=== PATIENT | female | born 1970 | race Caucasian/White ===

== ENCOUNTER 2018-09-05 12:09 | Day surgery (SDC) | payer MEDICAID ==
[~2018-09-05] VITALS: Ht 152.4 cm; Wt 64.1 kg
[~2018-09-05 12:09] MED LIST: SODIUM CHLORIDE 0.9% 1,000 ML IV ONE
[2018-09-05] MEDS ORDERED: PROPOFOL 1% 20 ML VIAL IVP ONE (12:10)
== END 2018-09-05 15:20 | disposition home or self-care (01) ==
LOC: SURGERY 12:09
PROVIDERS: ATTEND Internal Medicine Gastroenterology
DX: D12.0 Benign neoplasm of cecum (principal); K64.1 Second degree hemorrhoids; Z98.890 Other specified postprocedural states
CPT/HCPCS: 45380; C1769; J2704; J7030